=== PATIENT | male | born 1985 | race Caucasian/White ===

== ENCOUNTER 2021-08-28 22:40 | Emergency (ER) | payer OTHER, BC ==
[2021-08-28] MEDS ORDERED: Sodium Chloride 0.9% 2.5 ML Syringe FLUSH PRN (22:41)
[2021-08-28] MEDS ORDERED: Sodium Chloride 0.9% 10 ML Syringe FLUSH PRN (22:41)
[2021-08-28 23:08] LABS: CARBON DIOXIDE,CO2 24.5 mmol/L (21.0-32.0); POTASSIUM,K 3.7 mmol/L (3.5-5.1)
[2021-08-28] MEDS ORDERED: Iopamidol 755 MG/ML 500 ML Multipack Bottle IVPUSH ONE (23:22)
[2021-08-28] MEDS ORDERED: Lactated Ringers 1,000 ML IV ONE (23:39)
[2021-08-29] MEDS ORDERED: Tranexamic Acid 1,000 MG in Sodium Chloride 0.9% 100 ML IV ONE (00:16)
== END 2021-08-29 00:40 ==
LOC: MW.ED 22:40
DX: S12.600A Unspecified displaced fracture of seventh cervical vertebra, initial encounter for closed fracture (principal); S01.01XA Laceration without foreign body of scalp, initial encounter; V89.2XXA Person injured in unspecified motor-vehicle accident, traffic, initial encounter
CPT/HCPCS: 36415; 36430; 70450; 71260; 72125; 74177; 80053; 80307; 85025; 86850; 86900; 86901; 86920; 87635; 96374; 99285; J3490; J7120; P9016; Q9967; U0002